=== PATIENT | female | born 1980 | race Caucasian/White ===

== ENCOUNTER 2020-07-08 15:17 | Outpatient (CLI) | payer OTHER, SELFPAY | END 2020-07-08 15:18 | disposition home or self-care (01) | LOC: ANHCOVIDVC 15:17 | PROVIDERS: PCP Internal Medicine | DX: Z23 Encounter for immunization (principal) | CPT/HCPCS: 0001A; 91300 ==

== ENCOUNTER 2020-07-29 15:16 | Outpatient (CLI) | payer OTHER, SELFPAY | END 2020-07-29 15:17 | disposition home or self-care (01) | LOC: ANHCOVIDVC 15:16 | PROVIDERS: PCP Internal Medicine | DX: Z23 Encounter for immunization (principal) | CPT/HCPCS: 0002A; 91300 ==

== ENCOUNTER 2021-06-30 00:05 | Day surgery (SDC) | payer OTHER, SELFPAY ==
[2021-06-16 13:20] VITALS: BMI 42.7
[2021-06-30 07:38] VITALS: BP 149/83; PULSE 85; RESP 18; TEMP 36.4; O2SAT 100; BMI 44.4
[2021-06-30] MEDS: LACTATED RINGERS 1,000 ML 150 ML IV CONT (08:01)
--- NOTE | 2021-06-30 08:42 | P.PNAN_ITS ---
Anes - Initial Pre Proc Eval Procedure: Operation Date: 06/30/21 09:00 Proposed Procedures p Esophagogastroduodenoscopy - Jordi Poole MD Date/Time: 06/30/21 08:42 Surgeon: Jordi Poole MD Pre Op Diagnosis: duodenal ulcer Patient Data Age: 41 Gender: F Height: 1.68 m Weight: 124.8 kg Last Vital Signs Temp 97.6 F 06/30/21 07:38 Pulse 85 06/30/21 07:38 Resp 18 06/30/21 07:38 BP 149/83 H 06/30/21 07:38 Pulse Ox 100 06/30/21 07:38 Allergies Allergy/AdvReac Type Severity Reaction Status Date / Time clindamycin Allergy Mild Itching Verified 06/30/21 07:46 Penicillins Allergy Mild itching Verified 06/30/21 07:46 Home Medications Medication Instructions Recorded Confirmed Type loratadine 10 mg tablet 10 mg PO DAILY 05/05/21 06/30/21 History pantoprazole 40 mg tablet,delayed 40 mg PO QAM #30 tablet 06/07/21 06/30/21 Rx release sucralfate 1 gram tablet 1 g PO QID #120 tablet 06/07/21 06/30/21 Rx Patient hx anesthesia problems: none Family hx anesthesia problems: none Results Review: All pre-operative results and documents have been reviewed as part of the pre-operative evaluation. FOR[facility]LY [facility], [facility] Family History Family History Mother Patient's mother is in good health Sibling Patient's brother is in good health Social History Social History Smoking status: Never smoker Second hand tobacco smoke exposure: No Alcohol intake: never Substance use: never Substance use type: does not use Living arrangements: with family Spiritual care concerns: No Anes - Eval Final PreProcedure Day of Procedure 06/30/21 08:42 Patient weight: morbidly obese Heart: regular rate and rhythm Lungs: clear to auscultation Airway: Mallampati scale class II Neurological: alert and oriented Last oral intake: >/= 8 hours ASA classification: III Emergent: no Anesthetic plan: proceed Anesthesia type and monitoring: general GIVS and standard monitoring Results Review: All pre-operative results and documents have been reviewed as part of the pre-operative evaluation. Informed Consent: The patient's anesthetic plan and its attendant risks and benefits were discussed with the patient/family/POA. Questions were solicited and answers provided to the satisfaction of the patient/family/POA.
--- NOTE | 2021-06-30 08:52 | PM.HPGS ---
History of Present Illness History of Present Illness Consent: Risks, benefits, and alternatives have been discussed and questions answered. Patient agrees to proceed with procedure. Chief complaint: duodenal ulcer Narrative: Mellisa Lyman is a 41 year old female with hiccups and sharp pain early May, CT scan showed possible ulcer in duodenum. Started on protonix and carafate, feeling better but never had EGD. Review of Systems Constitutional: Constitutional: Denies headache(s) and Denies weakness Eyes: Eyes: Denies blurry vision ENT: Reports Normal hearing present, Denies headache(s) and Denies neck pain Cardiovascular: Cardiovascular: Denies chest pain and Denies dyspnea Respiratory: Respiratory: Denies dyspnea Gastrointestinal: Gastrointestinal: Reports no additional gastrointestinal complaints Genitourinary: Genitourinary: Denies dysuria Musculoskeletal: Musculoskeletal: Denies neck pain Integumentary/Breasts: Skin/Breast: Denies dry skin Neurologic: Reports Normal hearing present, Denies headache(s) and Denies weakness Psychiatric: Psychiatric: Denies anxiety Endocrine: Endocrine: Denies change in body appearance Hematologic/Lymphatic: Hematologic/Lymphatic: Denies easy bleeding Allergic/Immunologic: Allergic/Immunologic: Denies urticaria PMF Past Medical History Medical History (Updated 06/30/21 @ 08:53 by Jordi Poole MD) Mucosal abnormality of duodenum Family History Family History Mother Patient's mother is in good health Sibling Patient's brother is in good health Social History Social History Smoking status: Never smoker Second hand tobacco smoke exposure: No Alcohol intake: never Substance use: never Substance use type: does not use Living arrangements: with family Spiritual care concerns: No Meds Home Medications and Allergies Home Medications Medication Instructions Recorded Confirmed Type loratadine 10 mg tablet 10 mg PO DAILY 05/05/21 06/30/21 History pantoprazole 40 mg tablet,delayed 40 mg PO QAM #30 tablet 06/07/21 06/30/21 Rx release sucralfate 1 gram tablet 1 g PO QID #120 tablet 06/07/21 06/30/21 Rx Allergies Allergy/AdvReac Type Severity Reaction Status Date / Time clindamycin Allergy Mild Itching Verified 06/30/21 07:46 Penicillins Allergy Mild itching Verified 06/30/21 07:46 Vital Signs Vital Signs - 24 hr 06/30/21 07:38 Temperature 97.6 F Pulse Rate 85 Respiratory Rate 18 Blood Pressure 149/83 H Pulse Oximetry 100 Exam Const: General: comfortable and no acute distress HENMT: General nose exam: Normal nares present Eyes: General: appearance normal, both eyes and all related structures Neck: Neck: no JVD Resp: Auscultation: clear to auscultation bilaterally Cardio: Rate: regular rate Rhythm: regular rhythm GI: Inspection: non-distended GI Palp: Yes Soft to palpation Skin: General skin exam: normal color Neuro: General: gait normal Speech: normal speech Extrem: General: normal to inspection Psych: Mental Status: mental status grossly normal Assessment and Plan Assessment and plan (1) Mucosal abnormality of duodenum: Code(s): K31.9 - Disease of stomach and duodenum, unspecified Status: Acute Assessment and Plan: possible ulcer, better since using ppi will do egd (never had one) (2) Hiccups: Code(s): R06.6 - Hiccough Status: Acute
[2021-06-30] MEDS: BENZOCAINE (*SP) 60 ML SPRAY CAN (HURRICAINE) 1 SPRAY MUCOUS MEM (08:58)
[2021-06-30 09:06] VITALS: BP 142/92; PULSE 71; RESP 23; O2SAT 99
[2021-06-30 09:16] VITALS: BP 129/83; PULSE 80; RESP 19; O2SAT 99
[2021-06-30 09:26] VITALS: BP 139/85; PULSE 68; RESP 17; O2SAT 100
== END 2021-06-30 09:31 | disposition home or self-care (01) ==
PROVIDERS: PCP Internal Medicine; Visit Provider Internal Medicine Gastroenterology
PROC: 0DJ08ZZ Inspection of Upper Intestinal Tract, Via Natural or Artificial Opening Endoscopic (ICD-10-PCS; CPT 43235; principal; 2021-06-30 09:00)
DX: K29.50 Unspecified chronic gastritis without bleeding (principal); B96.81 Helicobacter pylori [H. pylori] as the cause of diseases classified elsewhere; D13.0 Benign neoplasm of esophagus; R06.6 Hiccough; E66.01 Morbid (severe) obesity due to excess calories; Z68.41 Body mass index [BMI] 40.0-44.9, adult
CPT/HCPCS: 43239; 88305; 88342; J2704; J7120